=== PATIENT | female | born 1975 | race Caucasian/White ===

== ENCOUNTER 2017-06-04 01:16 | Emergency (ER) | payer OTHER ==
[2017-06-04 02:06] LABS: PLATELET COUNT 331 x10^3mcL (130-400); RED CELL DISTRIBUTION WIDTH 12.7 % (11.5-14.5)
[2017-06-04 02:10] LABS: CALCIUM 8.6 mg/dL (8.5-10.1); CARBON DIOXIDE 26.6 mmol/L (21-32); CHLORIDE SERUM 105 mmol/L (98-107); CREATININE SERUM 0.8 mg/dL (0.6-1.0); GFR1 > 60 mL/min; GLUCOSE SERUM 101 mg/dL (74-106); POTASSIUM SERUM 3.8 mmol/L (3.5-5.1); SODIUM SERUM 137 mmol/L (136-145)
[2017-06-04 02:12] LABS: BASOPHIL % 4.9 % (0-2)
[2017-06-04 02:17] LABS: ALBUMIN 3.6 g/dL (3.4-5.0); ALKALINE PHOSPHATASE 84 U/L (46-116); ALT/SGPT 76 U/L (14-59); AST/SGOT 38 U/L (15-37); CHOLESTEROL 196 mg/dL (<200); CHOLESTEROL/HDL RATIO 4.2; HDL CHOLESTEROL 47 mg/dL (40-60); LIPASE 99 IU/L (73-393); TOTAL PROTEIN, SERUM 7.6 g/dL (6.4-8.2); TRIGLYCERIDES 149 mg/dL (<150)
[2017-06-04 02:21] LABS: T3 TOTAL 1.59 ng/mL
[2017-06-04 02:26] LABS: UA SPECIFIC GRAVITY >=1.030 (1.005-1.035); microscopic required? YES
[2017-06-04 02:27] LABS: urine erythrocyte 2+ (NEGATIVE)
[2017-06-04 02:31] LABS: FREE T4 0.87 ng/dL (0.76-1.46); FREE THYROXINE INDEX 2.3 ug/dL (1.4-4.5); T4(THYROXINE) 7.4 ug/dL (4.7-13.3)
[2017-06-04 03:28] VITALS: BP 101/62
== END 2017-06-04 03:20 | disposition home or self-care (01) ==
LOC: ED 01:16
PROVIDERS: Specialist
DX: J45.909 Unspecified asthma, uncomplicated (principal)
CPT/HCPCS: 83880; 84439; J7030; J7613; J7644; Q0092

== ENCOUNTER 2017-10-01 19:18 | Emergency (ER) | payer OTHER ==
[~2017-10-01] VITALS: Ht 162.6 cm; Wt 102.0 kg
[2017-10-01 19:59] VITALS: Ht 162.6 cm; Wt 102.0 kg
[2017-10-01 23:40] VITALS: BP 133/90
== END 2017-10-01 23:40 | disposition home or self-care (01) ==
LOC: ED 19:18
DX: K52.9 Noninfective gastroenteritis and colitis, unspecified (principal); R51 Headache
CPT/HCPCS: 82962; Q0162

== ENCOUNTER 2018-11-19 18:21 | Emergency (ER) | payer OTHER ==
[2018-11-19 18:53] VITALS: BP 116/77; Ht 162.6 cm
== END 2018-11-19 20:28 | disposition home or self-care (01) ==
LOC: ED 18:21
DX: J40 Bronchitis, not specified as acute or chronic (principal); Z98.890 Other specified postprocedural states
CPT/HCPCS: J7512; J7620

== ENCOUNTER 2019-01-09 13:54 | Emergency (ER) | payer OTHER ==
[~2019-01-09] VITALS: Ht 170.2 cm; Wt 103.4 kg
[2019-01-09 14:02] VITALS: Ht 170.2 cm; Wt 103.4 kg
[2019-01-09 15:56] VITALS: BP 136/74
== END 2019-01-09 15:56 | disposition home or self-care (01) ==
LOC: ED 13:54
DX: S16.1XXA Strain of muscle, fascia and tendon at neck level, initial encounter (principal); S29.012A Strain of muscle and tendon of back wall of thorax, initial encounter; S20.212A Contusion of left front wall of thorax, initial encounter; R03.0 Elevated blood-pressure reading, without diagnosis of hypertension; V48.5XXA Car driver injured in noncollision transport accident in traffic accident, initial encounter; Y93.I9 Activity, other involving external motion; Y92.488 Other paved roadways as the place of occurrence of the external cause; Y99.8 Other external cause status
CPT/HCPCS: J1885

== ENCOUNTER 2019-04-23 08:19 | Emergency (ER) | payer OTHER ==
[~2019-04-23] VITALS: Ht 162.6 cm; Wt 103.4 kg
[2019-04-23 11:29] VITALS: BP 141/70
== END 2019-04-23 11:29 | disposition home or self-care (01) ==
LOC: ED 08:19
DX: M54.42 Lumbago with sciatica, left side (principal); Z98.890 Other specified postprocedural states
CPT/HCPCS: J1885; J7512

== ENCOUNTER 2019-08-04 21:17 | Emergency (ER) | payer OTHER ==
[~2019-08-04] VITALS: Ht 160 cm; Wt 106.6 kg
[2019-08-04 21:30] VITALS: Ht 160 cm; Wt 106.6 kg
[2019-08-04 22:01] VITALS: BP 101/80
== END 2019-08-04 22:01 | disposition home or self-care (01) ==
LOC: ED 21:17
DX: H10.9 Unspecified conjunctivitis (principal); Z98.890 Other specified postprocedural states

== ENCOUNTER 2019-09-26 19:05 | Emergency (ER) | payer OTHER ==
[~2019-09-26] VITALS: Ht 162.6 cm; Wt 104.3 kg
[2019-09-26 19:43] VITALS: Ht 162.6 cm; Wt 104.3 kg
[2019-09-26 21:30] VITALS: BP 130/79
== END 2019-09-26 21:30 | disposition home or self-care (01) ==
LOC: ED 19:05
DX: H57.89 Other specified disorders of eye and adnexa (principal); Z98.890 Other specified postprocedural states

== ENCOUNTER 2020-05-08 21:18 | Emergency (ER) | payer OTHER ==
[~2020-05-08] VITALS: Ht 170.2 cm; Wt 105.2 kg
[2020-05-08 21:31] VITALS: Ht 170.2 cm; Wt 105.2 kg
[2020-05-09 00:49] VITALS: BP 95/45
== END 2020-05-09 00:49 | disposition home or self-care (01) ==
LOC: ED 21:18
DX: K59.00 Constipation, unspecified (principal); Z98.890 Other specified postprocedural states

== ENCOUNTER 2020-05-09 16:07 | Emergency (ER) | payer OTHER ==
[~2020-05-09] VITALS: Ht 162.6 cm; Wt 103.9 kg
[2020-05-09 16:28] VITALS: Ht 162.6 cm; Wt 103.9 kg
[2020-05-09 18:11] LABS: BASOPHIL % 0.6 % (0-2); PLATELET COUNT 351 x10^3mcL (130-400); RED CELL DISTRIBUTION WIDTH 15.6 % (11.5-14.5)
[2020-05-09 18:23] LABS: CALCIUM 8.9 mg/dL (8.5-10.1); CARBON DIOXIDE 28.1 mmol/L (21-32); CHLORIDE SERUM 103 mmol/L (98-107); GFR1 > 60 mL/min; GLUCOSE SERUM 91 mg/dL (74-106); SODIUM SERUM 140 mmol/L (136-145)
[2020-05-09 18:28] LABS: ALBUMIN 3.7 g/dL (3.4-5.0); ALKALINE PHOSPHATASE 79 U/L (46-116); ALT/SGPT 60 U/L (14-59); AST/SGOT 33 U/L (15-37); BILIRUBIN TOTAL 0.7 mg/dL (0.20-1.00); LIPASE 81 IU/L (73-393)
[2020-05-09 19:01] VITALS: BP 112/61
== END 2020-05-09 19:01 | disposition home or self-care (01) ==
LOC: ED 16:07
PROVIDERS: Emergency Medicine
DX: K59.00 Constipation, unspecified (principal); Z98.890 Other specified postprocedural states
CPT/HCPCS: J7030

== ENCOUNTER 2020-12-05 18:50 | Emergency (ER) | payer OTHER ==
[~2020-12-05] VITALS: Ht 162.6 cm; Wt 101.6 kg
[2020-12-05 18:59] VITALS: Ht 162.6 cm; Wt 101.6 kg
[2020-12-05 20:02] LABS: PLATELET COUNT 350 x10^3mcL (179-408); RED CELL DISTRIBUTION WIDTH 15.2 % (12.3-17.7)
[2020-12-05 20:13] LABS: CALCIUM 8.1 mg/dL (8.5-10.1); CARBON DIOXIDE 28.5 mmol/L (21-32); CHLORIDE SERUM 100 mmol/L (98-107); GFR1 > 60 mL/min; GLUCOSE SERUM 93 mg/dL (74-106); POTASSIUM SERUM 4.3 mmol/L (3.5-5.1); SODIUM SERUM 135 mmol/L (136-145)
[2020-12-05] MEDS ORDERED: OHM ALLERGY REL10 MG PO (21:55)
[2020-12-05] MEDS ORDERED: CORTIZONE-10 1%56 GM TOP (21:55)
[2020-12-05] MEDS ORDERED: PROVERA10 MG PO (21:55)
[2020-12-05 22:45] VITALS: BP 115/71
== END 2020-12-05 22:45 | disposition home or self-care (01) ==
LOC: ED 18:50
PROVIDERS: Emergency Medicine
DX: N93.8 Other specified abnormal uterine and vaginal bleeding (principal); R21 Rash and other nonspecific skin eruption; Z98.890 Other specified postprocedural states